=== PATIENT | male | born 1980 | race Caucasian/White ===

== ENCOUNTER 2016-11-27 19:50 | Emergency (ER) | payer BC ==
[~2016-11-27] VITALS: Ht 180.3 cm; Wt 83.0 kg
[~2016-11-27 19:50] MED LIST: FLOMAX0.4 MG PO; MOTRIN600 MG PO; PERCOCET 5/31 TABLET PO
[2016-11-27 21:39] LABS: HEMATOCRIT 48.4 % (38.0-50.0); MCH 28.7 PG (29.0-34.0); MCHC 33.7 G/DL (30.0-36.0); MCV 85.2 FL (86-99); MEAN PLAT.VOLUME 11.2 uM^3 (9.0-12.4); PLATELET COUNT 226 K/uL (156-360); RBC DIS.WIDTH-CV 12.6 % (11.8-14.6); RBC DIS.WIDTH-SD 38.7 % (39-53); RED BLOOD COUNT 5.68 M/uL (4.00-5.50); WHITE BLOOD COUNT 9.6 K/uL (4.1-10.2)
[2016-11-27 21:51] LABS: CHLORIDE 106 mEq/L (99-109); POTASSIUM 4.2 mEq/L (3.7-5.4); SODIUM 140 mEq/L (136-147)
[2016-11-27 21:53] LABS: GLUCOSE 99 mg/dL (70-99)
[2016-11-27 21:54] LABS: ANION GAP 9 MEQ/L (2-14)
[2016-11-27 21:57] LABS: GFR ESTIMATE (CALCULATED) > 59 mL/min/
[2016-11-27 21:58] LABS: UREA NITROGEN (BUN) 15 mg/dL (9-23)
[2016-11-27 22:02] LABS: TROP-I INTERPRETATION NEGATIVE; TROPONIN-I < 0.01 ng/mL (0.0-0.30)
[2016-11-27 22:49] VITALS: BP 133/98
== END 2016-11-27 22:51 | disposition home or self-care (01) ==
LOC: EME 19:50
DX: R07.9 Chest pain, unspecified (principal); R10.13 Epigastric pain; R14.2 Eructation; Z87.442 Personal history of urinary calculi
CPT/HCPCS: 71020; 80048; 84443; 84484; 85027; 93005; 99281; 99284